=== PATIENT | female | born 1970 | race Caucasian/White ===

== ENCOUNTER → 2018-03-16 08:06 | Outpatient (CLI) | payer MEDICAID ==
[2015-01-29 05:58] VITALS: BMI 42.6
[~2018-03-16 08:06] MED LIST: BACTRIM DS TABL1 TAB PO; CELEXA20 MG PO; ENDOCET 10-3251 TAB PO; LEVEMIR100 U/M1 SC; LISINOPRIL10 MG PO; NOVOLOG100 U/M1 SC
== END | disposition home or self-care (01) ==
LOC: D.MAMMO 08:06
DX: N64.4 Mastodynia (principal); Z12.31 Encounter for screening mammogram for malignant neoplasm of breast

== ENCOUNTER → 2021-04-14 07:50 | Outpatient (CLI) | payer MEDICAID ==
[2015-01-29 05:58] VITALS: BMI 42.6
--- NOTE | 2021-04-15 08:07 | ST ---
PATIENT:RUSSELL MANZANO MEDICAL RECORD: [id number] SEX: F LOCATION:[facility] ORDER #: ADMISSION DATE: 04/14/21 AGE OF PATIENT: 50 REFERRING PHYSICIAN: INTERPRETING PHYSICIAN: GUANAKITO PURDY MD DATE OF SERVICE: 04/14/2021 NUCLEAR STRESS TEST FINDINGS: Gated is normal, normal wall motion, normal wall thickening, calculated EF 81%. SPECT imaging in the short axis view shows a good uptake along the anterior wall, lateral wall, and inferior wall. Horizontal axis: Horizontal axis confirms good uptake along the anterior wall and inferior wall. Vertical axis: Vertical axis confirms good uptake along the lateral wall and septum. FINAL IMPRESSION: 1. Normal gated, normal wall motion, normal EF 81%. 2. Normal SPECT imaging. FINAL RECOMMENDATION: The scan is felt to be a low risk for any significant myocardial ischemia or previous myocardial infarction. LV function remains normal. Continued risk factor modification is recommended. TRANSINT:[id number] Voice Confirmation ID: [id number] DOCUMENT ID: [id number] GUANAKITO PURDY MD at [id number] CC: [id number] DICTATION DATE: 04/14/21 1703 STEEL LAYER: 04/15/21 0337 DEP CLI 04/14/21 [id number] [place] [address]
== END | disposition home or self-care (01) ==
LOC: D.HCCECHO 07:50
PROVIDERS: ATTEND Internal Medicine Interventional Cardiology
DX: I10 Essential (primary) hypertension (principal); I20.9 Angina pectoris, unspecified